=== PATIENT | male | born 1940 | race Caucasian/White ===

== ENCOUNTER 2023-01-26 06:29 | Day surgery (SDC) | payer MEDICARE ==
[~2023-01-26] VITALS: Ht 182.9 cm; Wt 86.2 kg
[~2023-01-26 06:29] MED LIST: AMLODIPINE5 MG PO; FLUARIX QUADRIV1 IN2 IM; LISINOP/HCTZ1 TA1 PO; LISINOPRIL20 M1 PO; LYCOPENE10 MG PO; METO50TA52 PO; METOPROL TAR25 MG PO; MIRTAZAPINE15 MG PO; MULT1 PO; MULTI VIT PO; PRAVASTATIN SOD10 MG PO; PRAVASTATIN10 MG PO
[2023-01-26 08:59] VITALS: BP 128/67
== END 2023-01-26 08:55 | disposition home or self-care (01) ==
LOC: ENDO 06:29 → ORM 08:00 → ENDO 08:55 → ORM 09:05
PROVIDERS: ATTEND Surgery
PROC: 0DJD8ZZ Inspection of Lower Intestinal Tract, Via Natural or Artificial Opening Endoscopic (ICD-10-PCS; principal; 2023-01-26)
DX: Z12.11 Encounter for screening for malignant neoplasm of colon (principal); K64.8 Other hemorrhoids; I10 Essential (primary) hypertension; Z86.010 Personal history of colon polyps; Z80.0 Family history of malignant neoplasm of digestive organs
CPT/HCPCS: G0105

== ENCOUNTER 2024-05-08 09:05 | Emergency (ER) | payer MEDICARE ==
[~2024-05-08] VITALS: Ht 182.9 cm; Wt 86.1 kg
[2024-05-08] VITALS (9 sets, daily range): BP systolic 124–149; BP diastolic 60–82
[2024-05-08] MEDS ORDERED: IBUPROFEN 200 MG/TAB PO ONE (09:15)
[2024-05-08] MEDS ORDERED: ACETAMINOPHEN 325 MG/TAB PO ONE (09:15)
[2024-05-08] MEDS ORDERED: NAPROXEN500 MG PO (15:58)
[2024-05-08] MEDS ORDERED: TRAMADOL HYDROC50 M1 PO (15:58)
== END 2024-05-08 11:00 | disposition home or self-care (01) ==
LOC: ED 09:05
PROC: 2W3CX1Z Immobilization of Right Lower Arm using Splint (ICD-10-PCS; principal; 2024-05-08)
DX: S52.511A Displaced fracture of right radial styloid process, initial encounter for closed fracture (principal); W01.0XXA Fall on same level from slipping, tripping and stumbling without subsequent striking against object, initial encounter; Y92.009 Unspecified place in unspecified non-institutional (private) residence as the place of occurrence of the external cause